=== PATIENT | male | born 1935 | race Asian ===

== ENCOUNTER → 2017-12-31 | Outpatient (CLI) | payer OTHER | LOC: BMCIMAGING 10:42 | PROVIDERS: ATTEND Orthopaedic Surgery | DX: M16.11 Unilateral primary osteoarthritis, right hip (principal) ==

== ENCOUNTER 2018-01-06 14:30 | Emergency (ER) | payer OTHER ==
[2018-01-06 14:39] VITALS: TEMP 97.7; O2SAT 95
--- NOTE | 2018-01-06 14:48 | CPEKG ---
Heart Rate: 60 RR Interval: 1000 P-R Interval: 188 QRSD Interval: 138 QT Interval: 420 QTC Interval: 420 P Darby: 33 QRS Darby: 68 T Wave Darby: -9 EKG Severity - ABNORMAL ECG - EKG Impression: SINUS RHYTHM EKG Impression: VENTRICULAR BIGEMINY EKG Impression: PROBABLE LEFT ATRIAL ABNORMALITY EKG Impression: RIGHT BUNDLE BRANCH BLOCK Electronically Signed By: Alonso Teran 06-Jan-2018 21:11:42
--- NOTE | 2018-01-06 15:19 | EDPHY ---
HPI/HX/ROS/PE/MDM Narrative: CHIEF COMPLAINT: Dizziness, bradycardia. HPI: This patient is an 82 y/o male complaining of dizziness and an episode of bradycardia. Over the past six months, he has had two episodes of vertigo. These episodes last for a couple minutes and then resolve. He went to see Dr. Barnett, neurologist, today regarding his dizziness, lightheadedness, and imbalance when walking. At that visit he had a low heart rate in the 40s, so he was referred to the emergency department for further evaluation. He does not feel dizzy or otherwise poorly now. He had a recent cardiac stress test and was diagnosed with right bundle branch block. He denies any chest pain. He denies any recent changes in medication or recent trauma. He did receive cortisone shots in right hip by an orthopedist one week ago due to pain from arthritis. No nausea, vomiting, visual changes, numbness or paresthesias, or other associated symptoms. REVIEW OF SYSTEMS: Aside from elements discussed in the HPI, a comprehensive 10-point review of systems was reviewed and is negative. PMH: GERD. Hypertension. Diabetes Mellitus Type II. Vertigo. Hyperlipidemia. Arthritis SOCIAL HISTORY: . Lives in [place]. Retired. PHYSICAL EXAM: General:Patient is alert, in no acute distress. ENT:Eyes are normal to inspection. ENT inspection normal. Neck: Normal inspection. Full range of motion. Respiratory:No respiratory distress. Breath sounds normal bilaterally. Cardiovascular: Irregularly irregular rhythm, normal rate. Strong peripheral pulses. Normal cap refill. Abdomen:The abdomen is nontender to palpation. There are no peritoneal signs. There are normal bowel sounds. Back: Normal to inspection. No tenderness to palpation. Skin: Normal color. No rash. Warm and dry. Extremities: Normal appearance. Full range of motion. Neuro: Oriented x3. Normal motor function. Normal sensory function. ED Course: 82 y/o male presents following two episodes of dizziness over the last six months as well as a reported episode of bradycardia earlier today. His heart rate is in the 60s and 70s throughout my interview with frequent PVCs on monitor. Plan for EKG, chest x-ray, labs including CBC, chemistries, troponin. EKG was ordered and interpreted by myself. Please see griddig system for official reading. Sinus rhythm, rate 62. Evidence of RBBB and probable left atrial abnormality. Chest x-ray shows minimal cardiomegaly, otherwise negative for acute processes. Troponin negative. Laboratory studies otherwise unremarkable. 16:30 Reassessed patient. Discussed results of studies. I offered and recommended admission for cardiac monitoring, but the patient declines. I will discharge him home with referral to cardiology for further evaluation. Strict return precautions discussed. He is comfortable with this plan. MDM: This patient presents to the ED because he was apparently found to have a heart rate in the 40s at his neurology clinic and was instructed to go to the ED. On arrival, he is asymptomatic, with a HR in the 60s, revealing frequent PVCs. There is no evidence of heart block on exam, nor signs of ischemia. We performed an extensive workup including blood work and troponin, which are normal. The patient was originally presenting to the neurologist to evaluate chronic vertigo, for which he has had a negative workup in the past, but he denies any vertiginous symptoms, headache or gait instability currently. The patient was monitored throughout his ED stay and no episodes of heart block or bradycardia were noted. On repeat ECG, his PVCs have resolved and he remains asymptomatic. I offered him admission to the hospital for further monitoring and workup but he declines. We discussed strict return precautions. - Data Points Imaging Results: Imaging Impressions Chest X-Ray 01/06/18 15:20 Impression: Minimal cardiomegaly. No failure or acute process. Imaging: I viewed and interpreted images myself Laboratory Results: Laboratory Results 01/06/18 14:45 01/06/18 14:45 01/06/18 01/06/18 14:45 14:45 WBC 7.44 10^3/uL 10^3/uL (3.80-9.50) RBC 5.23 10^6/uL 10^6/uL (4.40-6.38) Hgb 15.6 g/dL g/dL (13.7-17.5) Hct 46.0 % % (40.0-51.0) MCV 88.0 fL fL (81.5-99.8) MCH 29.8 pg pg (27.9-34.1) MCHC 33.9 g/dL g/dL (32.4-36.7) RDW 13.4 % % (11.5-15.2) Plt Count 177 10^3/uL 10^3/uL (150-400) MPV 10.7 fL fL (8.7-11.7) Neut % (Auto) 64.1 % % (39.3-74.2) Lymph % (Auto) 28.1 % % (15.0-45.0) [place] % (Auto) 6.5 % % (4.5-13.0) Eos % (Auto) 0.8 % % (0.6-7.6) Baso % (Auto) 0.4 % % (0.3-1.7) Nucleat RBC Rel Count 0.0 % % (0.0-0.2) Absolute Neuts (auto) 4.77 10^3/uL 10^3/uL (1.70-6.50) Absolute Lymphs (auto) 2.09 10^3/uL 10^3/uL (1.00-3.00) Absolute Monos (auto) 0.48 10^3/uL 10^3/uL (0.30-0.80) Absolute Eos (auto) 0.06 10^3/uL 10^3/uL (0.03-0.40) Absolute Basos (auto) 0.03 10^3/uL 10^3/uL (0.02-0.10) Absolute Nucleated RBC 0.00 10^3/uL 10^3/uL (0-0.01) Immature Gran % 0.1 % % (0.0-1.1) Immature Gran # 0.01 10^3/uL 10^3/uL (0.00-0.10) Sodium 139 mEq/L mEq/L (135-145) Potassium 4.7 mEq/L mEq/L (3.5-5.2) Chloride 102 mEq/L mEq/L (97-110) Carbon Dioxide 22 mEq/l mEq/l (22-31) Anion Gap 15 mEq/L mEq/L (8-16) BUN 28 mg/dL H mg/dL (7-23) Creatinine 0.9 mg/dL mg/dL (0.7-1.3) Estimated GFR > 60 Glucose 123 mg/dL H mg/dL (70-100) Calcium 10.1 mg/dL mg/dL (8.5-10.4) Troponin I < 0.012 ng/mL ng/mL (0.000-0.034) Medications Given: Discontinued Medications Sodium Chloride (Ns) 500 mls @ 0 mls/hr IV EDNOW ONE; Wide Open PRN Reason: Protocol Stop: 01/06/18 15:21 Last Admin: 01/06/18 15:30 Dose: 500 mls General Time Seen by Provider: 01/06/18 14:55 Initial Vital Signs: Initial Vital Signs Temperature (C) 36.5 C 01/06/18 14:32 Heart Rate 72 01/06/18 14:32 Respiratory Rate 15 01/06/18 14:32 Blood Pressure 199/84 H 01/06/18 14:32 O2 Sat (%) 95 01/06/18 14:32 O2 Delivery Mode Room Air Allergies/Adverse Reactions: No Known Allergies Allergy (Unverified 01/06/18 15:33) Home Medications: Medication Instructions Recorded Hydrochlorothiazide 01/06/18 Lipitor 01/06/18 Losartan Potassium 01/06/18 Metformin 1000 mg 01/06/18 Metoprolol Succinate 01/06/18 Mirapex 01/06/18 Pepcid 01/06/18 Proair Hfa 01/06/18 Departure - Departure Disposition: Home, Routine, Self-Care Clinical Impression: Dizziness, Frequent PVCs Condition: Good Instructions: Dizziness (ED), Premature Ventricular Contractions (ED) Additional Instructions: 1. Follow up with your primary care provider in 2-3 days. You may also continue to follow up with neurology. 2. Follow up with a software engineering analyst within one week for further evaluation. We have referred you to our software engineering analyst pest controller. 3. Return to the emergency department for recurrent dizziness, fainting, chest pain, shortness of breath, vomiting, weakness or numbness, fever, or other worsening of condition. 4. Drink plenty of fluids. Referrals: Rosendo Choe MD [Primary Care Provider] - As per Instructions Simin Ross MD [Medical Doctor] - As per Instructions Winsome Barnett DO [Non Staff and Non MD] - As per Instructions Report Scribed for: Alonso Teran Report Scribed by: Brittaney Ashby Date of Report: 01/06/18 Time of Report: 15:19 Physician Review and Approval Statement: Portions of this note were transcribed by an ED scribe. I personally performed the history, physical exam, and medical decision making; and confirm the accuracy of the information in the transcribed note.
[2018-01-06] MEDS ORDERED: NS 500 ML IV ONE (15:20)
[2018-01-06 15:32] VITALS: BP 162/80; PULSE 73; RESP 18
[2018-01-06 15:40] LABS: PLATELET COUNT 177 10^3/uL (150-400)
--- NOTE | 2018-01-06 16:18 | CPEKG ---
Heart Rate: 62 RR Interval: 968 P-R Interval: 192 QRSD Interval: 144 QT Interval: 420 QTC Interval: 427 P [place]: 24 QRS [place]: 80 T Wave [place]: -25 EKG Severity - ABNORMAL ECG - EKG Impression: SINUS RHYTHM EKG Impression: PROBABLE LEFT ATRIAL ABNORMALITY EKG Impression: RIGHT BUNDLE BRANCH BLOCK Electronically Signed By: Alonso Teran 06-Jan-2018 21:11:34
== END 2018-01-06 16:48 | disposition home or self-care (01) ==
LOC: EDUNIT#
DX: R42 Dizziness and giddiness (principal); I49.3 Ventricular premature depolarization; I10 Essential (primary) hypertension; E11.9 Type 2 diabetes mellitus without complications; E86.9 Volume depletion, unspecified; Z79.84 Long term (current) use of oral hypoglycemic drugs